=== PATIENT | female | born 2000 | race Caucasian/White ===

== ENCOUNTER 2024-08-27 23:08 | Emergency (ER) | payer MEDICAID, OTHER ==
[~2024-08-27] VITALS: Ht 154.9 cm; Wt 77.9 kg
[2024-08-27 23:30] VITALS: BP 114/77; PULSE 88; RESP 18; TEMP 98.1; O2SAT 97
--- NOTE | 2024-08-28 00:32 | ED.PDOC ---
History of Present Illness HPI Comments 23-year-old female presents with a chief complaint of back pain and headache x 3 days. Patient states that she gave on August 25. Patient reports that she had to have 3 attempts at an epidural. Patient reports that she had a blood patch after endorsing symptoms of photophobia and throbbing headache. Patient reports that her symptoms went away after the blood patch, but now they are back. Chief Complaint: Back Pain Time Seen by MD: 00:19 Reviewed Notes: Medications, Allergies Allergies: Coded Allergies: Banana (Verified Allergy, Unknown, 08/27/24) Information Source: Patient Mode of Arrival: Ambulatory Severity: Moderate Timing: Days Duration: Since onset Prehospital treatment: None Past Medical History PAST MEDICAL HISTORY: Denies Surgical History: Denies all surgeries [employer]OR OF [employer]OURCE DEVELOPMENT History: Denies all [employer]OR [employer]ELOPMENT Hx Family History Family History: Reviewed,noncontributory to illness Social History Smoker: Non-Smoker Alcohol: Denies ETOH Use Drugs: Denies Drug Use Lives In: Home Constitutional: denies: chills, diaphoresis, fatigue, fever, malaise, sweats, weakness, others EENTM: denies: blurred vision, double vision, ear bleeding, ear discharge, ear drainage, ear pain, ear ringing, eye pain, eye redness, hearing loss, mouth pa in, mouth swelling, nasal discharge, nose bleeding, nose congestion, nose pain, photophobia, tearing, throat pain, throat swelling, voice changes, others Respiratory: denies: cough, hemoptysis, orthopnea, SOB at rest, shortness of breath, SOB with excertion, stridor, wheezing, others Cardiovascular: denies: chest pain, dizzy spells, diaphoresis, Dyspnea on exertion, edema, irregular heart beat, left arm pain, lightheadedness, palpitations, PND, syncope, others Gastrointestinal: denies: abdomen distended, abdominal pain, blood streaked bowels, constipated, diarrhea, dysphagia, difficulty swallowing, hematemesis, melena, nausea, poor appetite, poor fluid intake, rectal bleeding, rectal pain, vomiting, others Genitourinary: denies: abnormal vagina bleeding, burning, dyspareunia, dysuria, flank pain, frequency, hematuria, incontinence, pain, , vagina discharge, urgency, others Neurological: reports: headache; denies: dizziness, fainting, left sided numbness, left sided weakness, numbness, paresthesia, pre-existing deficit, right sided numbness, right sided weakness, seizure, speech problems, tingling, tremors, weakness, others Musculoskeletal: reports: back pain; denies: gout, joint pain, joint swelling, muscle pain, muscle stiffness, neck pain, others Integumetry: denies: bruises, change in color, change in hair/nails, dryness, laceration, lesions, lumps, rash, wounds, others Allergic/Immunocompromised: denies: Difficulty Healing, Frequent Infections, Hives, Itching, others Hematologic/Lymphatic: denies: anemia, blood clots, easy bleeding, easy bruising, swollen glands, others Endocrine: denies: excessive hunger, excessive sweating, excessive thirst, excessive urination, flushing, intolerance to cold, intolerance to heat, unexplained weight gain, unexplained weight loss, others Psychiatric: denies: anxiety, bipolar disorder, depression, hopeless, panic di sorder, schizophrenia, sleepless, suicidal, others All Other Systems: Reviewed and Negative Physical Exam General Appearance: No Apparent Distress, Normal HEENT: Normal ENT Inspection, Pharynx Normal, TMs Normal Neck: Full Range of Motion, Non-Tender, Normal, Normal Inspection Respiratory: Chest Non-Tender, Lungs Clear, No Accessory Muscle Use, No Respiratory Distress, Normal Breath Sounds Cardiovascular: No Edema, No JVD, No Murmur, No Gallop, Normal Peripheral Pulses, Regular Rate/Rhythm Breast Exam: Deferred Gastrointestinal: No Organomegaly, Non Tender, No Pulsatile Mass, Normal Bowel Sounds, Soft Genitalia: Deferred Pelvic: Deferred Rectal: Deferred Extremities: No calf tenderness, Normal capillary refill, Normal inspection, Normal range of motion, Non-tender, No pedal edema Musculoskeletal : Apperance: Normal Neurologic: Alert, 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 Was a procedure done?: No Differential Dx Considerations may include: Postop epidural migraine, tension headache X-Ray, Labs, Meds, VS Vital Signs Date Time Temp Pulse Resp B/P (MAP) Pulse Ox O2 Delivery O2 Flow Rate FiO2 5/25/25 23:30 98.1 88 18 114/77 (00) 97 98.1 Time of 1ST Reevaluation: 00:49 Reevaluation 1ST: Unchanged Patient Education/Counseling: Diagnosis, Treatment Family Education/Counseling: No Family Present Departure 1 Departure Time of Disposition: 04:58 (Patient already had a blood patch for her epidural headache. We will give patient analgesia however patient has signed out AMA.) Impression: Primary Impression: Migraine Qualified Codes: G43.119 - Migraine with aura, intractable, without status migrainosus Disposition: LEFT AGAINST MEDICAL ADVICE Condition: Serious Critical Care Note Critical Care Time?: No Stability Stability form required: No Heart Score Heart Score: Heart Score Response (Comments) Value History N/A 0 EKG N/A 0 Age N/A 0 Risk Factors N/A 0 Troponin N/A 0 Total 0 I personally scribed for BROOK MELISSA MD ([email or web address]) on 08/28/24 at 00:32. Electronically submitted by Rafael Baker ([email or web address]). BROOK MELISSA MD August 28, 2024 00:32
[2024-08-28] MEDS: KETOROLAC TROMETH 30 MG/ML 1ML VIAL IV ONE (01:31)
[2024-08-28] MEDS: SODIUM CHLORIDE 0.9% 1,000 ML IV ONE (01:31)
[2024-08-28] MEDS: ACETAMINOPHEN 325 MG TAB PO ONE (01:31)
[2024-08-28] MEDS: METOCLOPRAMIDE HCL 5MG/ml INJ 2ml VIAL IV ONE (01:32)
[2024-08-28] MEDS: DexAMETHasone SOD PHOS 10MG/1ML VIAL INJ IV ONE (01:32)
== END 2024-08-28 02:46 | disposition left against medical advice (07) ==
LOC: ER 23:08
DX: O90.89 Other complications of the puerperium, not elsewhere classified (principal); M54.9 Dorsalgia, unspecified; G43.909 Migraine, unspecified, not intractable, without status migrainosus; Z91.018 Allergy to other foods
CPT/HCPCS: 96361; 96374; 96375; 99284; J1100; J1885; J2765; J7030